=== PATIENT | female | born 1975 ===

== ENCOUNTER 2017-03-01 15:48 | Emergency (ER) | payer OTHER ==
[2017-03-01 16:33] VITALS: BMI 26.6
[2017-03-01 16:34] VITALS: TEMP 97.6; O2SAT 99
--- NOTE | 2017-03-01 17:58 | RAD ---
PROCEDURE: Left Thumb radiographs. HISTORY: trauma COMPARISON: None. TECHNIQUE: AP radiograph of the left hand, as well as spot oblique and lateral images of thumb were obtained. FINDINGS: LEFT THUMB: There is no acute fracture or focal lesion in the common. Remainder of the left hand (as seen on the AP view) grossly unremarkable. JOINTS: Normal. SOFT TISSUES: There is mild soft tissue swelling in the thumb. No radiopaque foreign body. OTHER FINDINGS: None. IMPRESSION: No acute fracture. Mild soft tissue swelling in the arm. No radiopaque foreign body.
--- NOTE | 2017-03-01 18:15 | C.PDOC ---
History Of Present Illness 41 year old female presents to the ED for evaluation of left thumb pain after her thumb was accidentally shut in a car door [employer]. Patient is right hand dominant. She denies any changes in sensation or any other injuries at this time. Time Seen by Provider: 03/01/17 16:49 Chief Complaint (Nursing): Upper Extremity Problem/Injury History Per: Patient History/Exam Limitations: no limitations Onset/Duration Of Symptoms: Hrs Current Symptoms Are (Timing): Still Present Quality: "Pain" Additional History Per: Patient Past Medical History Reviewed: Historical Data, Nursing Documentation, Vital Signs Vital Signs: Last Vital Signs Temp 97.6 F 03/01/17 18:24 Pulse 65 03/01/17 18:24 Resp 20 03/01/17 18:24 BP 129/78 03/01/17 18:24 Pulse Ox 99 03/01/17 19:05 - Medical History PMH: No Chronic Diseases Surgical History: No Surg Hx - [facility] Procedures DELIVERY OF PRODUCTS OF CONCEPTION, EXTERNAL APPROACH (01/16/16) OCCLUSION OF BILATERAL FALLOPIAN TUBES, OPEN APPROACH (01/16/16) REPAIR OB LACERATION NEC (04/14/13) REPAIR PERINEUM SKIN, EXTERNAL APPROACH (01/16/16) Family History: States: Unknown Family Hx - Social History Hx Alcohol Use: No Hx Substance Use: No - Immunization History Hx Tetanus Toxoid Vaccination: No Hx Influenza Vaccination: No Review Of Systems Musculoskeletal: Positive for: Other (left thumb pain ) Neurological: Negative for: Weakness, Numbness Physical Exam - Physical Exam Appears: Non-toxic, No Acute Distress Skin: Warm, Dry, Other (<25% subungal hematoma to distal aspect of left thumb ) Head: Atraumatic, Normacephalic Eye(s): bilateral: Normal Inspection, EOMI Nose: Normal Oral Mucosa: Moist Chest: Symmetrical Respiratory: No Accessory Muscle Use Extremity: Normal ROM, Tenderness (to distal aspect of left thumb ), Capillary Refill (less than 2 seconds ), No Deformity Extremity: Bilateral: Normal ROM Pulses: Left Radial: Normal, Right Radial: Normal Neurological/Psych: Oriented x3, Normal Speech, Normal Cognition, Normal Motor, Normal Sensation Gait: Steady ED Course And Treatment O2 Sat by Pulse Oximetry: 99 (on RA) Pulse Ox Interpretation: Normal - Other Rad Thumb XR X-Ray: Interpreted by Me, Viewed By Me Interpretation: No fx or dislocation Progress Note: left thumb XR ordered and reviewed. Patient received Motrin PO. Finger splint applied by digital tech and was checked by me. On reassessment, patient is resting comfortably, showing no signs of distress and reports an improvement in her symptoms. Patient is stable for discharge and is advised to follow up with hand specialist within 1-2 days for further evaluation. Disposition - Disposition Referrals: Tiffanie Burger MD [Staff Provider] - Disposition: HOME/ ROUTINE Disposition Time: 18:13 Condition: STABLE Additional Instructions: Rest, ice and elevate the area. Follow up with PMD in 1-2 days. Instructions: Jammed Finger (ED) Forms: [facility] (Danish), Work Excuse - Clinical Impression Clinical Impression: Finger contusion, Subungual hematoma - PA / DEPUTY ATTORNEY GENERAL / Resident Statement MD/DO has reviewed & agrees with the documentation as recorded. - Scribe Statement The provider has reviewed the documentation as recorded by the Scribe (Zoey Hardin) All medical record entries made by the Scribe were at my direction and personally dictated by me. I have reviewed the chart and agree that the record accurately reflects my personal performance of the history, physical exam, medical decision making, and the department course for this patient. I have also personally directed, reviewed, and agree with the discharge instructions and disposition.
[2017-03-01 18:25] VITALS: BP 129/78; PULSE 65; RESP 20
== END 2017-03-01 18:37 | disposition home or self-care (01) ==
LOC: C.ER 15:48
DX: S60.012A Contusion of left thumb without damage to nail, initial encounter (principal); W23.0XXA Caught, crushed, jammed, or pinched between moving objects, initial encounter